=== PATIENT | male | born 1995 | race Caucasian/White ===

== ENCOUNTER 2020-10-18 13:12 | Emergency (ER) | payer SELFPAY ==
--- NOTE | 2020-10-18 13:20 | ED.URI ---
HPI - URI/Sore Throat General Chief Complaint: Upper Respiratory Infection Stated Complaint: sore throat Time Seen by Provider: 10/18/20 13:20 Source: patient and RN notes reviewed Mode of arrival: ambulatory Limitations: no limitations History of Present Illness HPI Narrative: 25-year-old male presents to the [facility] with complaints of 2 weeks of a sore throat. States it feels like the throat is swollen. Is maintaining own secretions. Pain with swallowing. Denies fevers. Has recently been [facility] from [facility]. Denies cough, shortness of breath, chest pain, nausea, vomiting or abdominal pain Related Data Allergies Allergy/AdvReac Type Severity Reaction Status Date / Time No Known Allergies Allergy Verified 10/11/15 10:11 Review of Systems Review of Systems: All systems reviewed & are unremarkable except as noted in HPI and below Constitutional: Constitutional: Reports no additional constitutional complaints, Denies chills and Denies fever(s) Eyes: Eyes: Reports no additional eye complaints ENT: Denies vertigo, Denies dizziness, Denies nasal congestion and Reports sore throat Cardiovascular: Cardiovascular: Reports no additional cardiovascular complaints and Denies chest pain Respiratory: Respiratory: Reports no additional respiratory complaints, Denies cough, Denies dyspnea and Denies wheezing Gastrointestinal: Gastrointestinal: Reports no additional gastrointestinal complaints, Denies abdominal pain, Denies nausea and Denies vomiting Musculoskeletal: Musculoskeletal: Reports no additional musculoskeletal complaints Integumentary/Breasts: Skin/Breast: Reports system reviewed and no additional complaints, except as docu Neurologic: Reports system reviewed and no additional complaints, except as documented Psychiatric: Psychiatric: Reports no additional psychiatric complaints [facility] Family History Family History Other Family history of malignant neoplasm Exam Const: General: no acute distress, alert and ill appearing acutely Nutritional Appearance: well nourished Orientation/consciousness: patient oriented x3 Limitations: no limitations HENMT: Ears: hearing grossly normal bilaterally, external ears normal and TM's normal bilaterally General nose exam: Normal external nose present, Normal nares present and Normal nasal mucous membranes and turbinates present Face and sinus: normal facial exam and sinuses nontender Mouth: Yes Normal oral and palatal mucosa present and Yes tongue normal Throat: uvula midline, abnormal tonsil (+2) bilateral and uvular edema Other: Posterior oropharynx, red. Hoarse voice noted. Eyes: Conjunctivae: conjunctivae normal Pupils: Equal, round and reactive pupils present Neck: Neck: normal visual inspection and lymphadenopathy bilateral submandibular soft, mobile and tender Chest: Chest palpation & inspection: normal inspection of the chest Resp: Effort & Inspection: normal respiratory effort and no use of accessory muscles Auscultation: clear to auscultation bilaterally, no crackles, no rales, no rhonchi and no wheezes Cardio: Rate: regular rate Rhythm: regular rhythm Back/Spine/Pelvis: Back: no CVA tenderness Skin: General skin exam: normal color Rashes: no rashes Neuro: General: patient oriented x3, moves all extremities and no focal motor deficits Speech: normal speech Gait exam (Neuro): Normal gait present Extrem: General: normal to inspection and no pedal edema Psych: Appearance: grossly normal and well kempt Mental Status: mental status grossly normal Affect: normal affect Attitude: cooperative Thought content: Yes Normal thought content present Course Course Emergency Course: Discharge instructions reviewed with patient, as well as provided in writing per nursing staff. The instructions also include specific and strict return/GO TO THE ER as well as f/u information. All questions have been answered, an
[2020-10-18 13:22] VITALS: BP 147/77; PULSE 73; RESP 16; TEMP 36.6; O2SAT 100
[2020-10-18 13:28] VITALS: BP 147/77; PULSE 73; RESP 16; TEMP 36.6; O2SAT 100
[2020-10-18] MEDS: cefTRIAXone 1 GM VIAL IM (13:46)
== END 2020-10-18 14:18 | disposition home or self-care (01) ==
PROVIDERS: Emergency Provider Nurse Practitioner
DX: J02.0 Streptococcal pharyngitis (principal); K12.2 Cellulitis and abscess of mouth
CPT/HCPCS: 87880; 96372; 99213; G0463; J0696; J8540

== ENCOUNTER 2021-06-13 14:52 | Emergency (ER) | payer OTHER, SELFPAY ==
[2021-06-13 15:04] VITALS: BP 137/77; PULSE 110; RESP 16; TEMP 37.2; O2SAT 99
[2021-06-13 15:07] VITALS: BP 137/77; PULSE 110; RESP 16; TEMP 37.2; O2SAT 99
--- NOTE | 2021-06-13 16:22 | ED.GENADULT ---
HPI - General Adult General Chief complaint: Wound/Laceration Stated complaint: Stitches removal Time Seen by Provider: 06/13/21 16:10 Source: patient, RN notes reviewed and old records reviewed Mode of arrival: ambulatory Limitations: no limitations History of Present Illness HPI narrative: 25-year-old male [facility] of sutures from the left hand from where he had a fracture repair done at [facility] in [place] on the 02 of June. Patient states he received a paper in the mail stating his sutures needed to come out on the but he is here today to get them removed. 3 sutures noted to wound over fifth metacarpal noted between 4th and 5th distal dorsal left hand area is well approximated with mild redness noted. MD complaint: Here for suture removal Related Data Allergies Allergy/AdvReac Type Severity Reaction Status Date / Time No Known Allergies Allergy Verified 10/11/15 10:11 Review of Systems Review of Systems: CONSTITUTIONAL: Denies fever, chills, or sweats. EYES: Denies visual changes, redness, or discharge. ENT: Denies rhinorrhea, congestion, sore throat, or otalgia. CARDIOVASCULAR: Denies chest pain, palpitations, or edema. RESPIRATORY: Denies cough or dyspnea. GASTROINTESTINAL: Denies abdominal pain, nausea, vomiting, or diarrhea. GENITOURINARY: Denies dysuria or hematuria. SKIN: Denies rash or itching.healing surgical site distal left hand over 5th metacarpal MUSCULOSKELETAL: Reports chronic back pain,left distal hand over the dorsal 5th metacarpal area pain, or myalgia. NEUROLOGIC: Denies headache, numbness, or weakness. PSYCHIATRIC: Denies anxiety or depression. All systems reviewed & are unremarkable except as noted in HPI and below PMFSH Past Medical History Medical History (Updated 06/14/21 @ 09:54 by Fang Guo NP) Ankle fracture, left Back pain Foot fracture, left Fracture of left leg Surgical History Surgical History (Updated 06/14/21 @ 09:38 by Fang Guo NP) H/O hand surgery fracture repair left Family History Family History Other Family history of malignant neoplasm Social History Social History (Updated 06/14/21 @ 09:40 by Fang Guo NP) Smoking packs per day: 0.5 Smoking cigarettes per day: 10.0 Smoking status: Current every day smoker Tobacco type: cigarettes Alcohol intake: unknown Substance use: unknown Living arrangements: with family Gender identity (if verbalized by the patient): Male Comments At time of signature, agree with nursing past medical, surgical, social and family history. There is no relevant family history pertinent to the presenting complaint Exam Narrative: GENERAL: Well-appearing, well-nourished, and in no acute distress. HEAD: Normocephalic, atraumatic. EYES: PERRLA and EOMI. ENT: Nares clear, no rhinorrhea or epistaxis. Mucous membranes moist.TM's normal, throat with no lesions redness or exudates or tonsil enlargement NECK: Supple.no lymphadenopathy CHEST: Clear to auscultation. No respiratory distress.SAO2 99% on room air HEART: Regular rate and rhythm. No murmur heard. Normal peripheral pulses. ABDOMEN: Soft, nontender, nondistended, normal active bowel sounds. EXTREMITIES: Normal range of motion. No edema. SKIN: Warm, dry, no rash.healing surgical site over 5th dorsal distal metacarpal region NEURO: No focal deficits. Alert and oriented x3. Course Course Level of Care: Express Care Visit Vital Signs Vital signs: Vital Signs Temperature 37.2 C 06/13/21 15:04 Pulse Rate 110 H 06/13/21 15:04 Respiratory Rate 16 06/13/21 15:04 Blood Pressure 137/77 06/13/21 15:04 Pulse Oximetry 99 06/13/21 15:04 Temperature 37.2 C 06/13/21 15:07 Pulse Rate 110 H 06/13/21 15:07 Respiratory Rate 16 06/13/21 15:07 Blood Pressure 137/77 06/13/21 15:07 Pulse Oximetry 99 06/13/21 15:07 Proced
== END 2021-06-13 16:34 | disposition home or self-care (01) ==
PROVIDERS: Emergency Provider Registered Nurse
DX: S61.412D Laceration without foreign body of left hand, subsequent encounter (principal); X58.XXXD Exposure to other specified factors, subsequent encounter; F17.210 Nicotine dependence, cigarettes, uncomplicated
CPT/HCPCS: 99213; G0463